=== PATIENT | female | born 1935 | race Caucasian/White ===

== ENCOUNTER 2017-12-24 09:23 | Emergency (ER) | payer OTHER ==
[~2017-12-24] VITALS: Ht 160 cm; Wt 88.5 kg
[~2017-12-24 09:23] MED LIST: ANAPROX275 MG PO; ARICEPT10 MG PO; ASA81 MG PO; AVALIDE 150-12.1 TA1 PO; CIPRO500 MG PO; CODE1TAB37 PO; GLUCOVANCE 2.5/1 TAB PO; NAMENDA10 MG PO; SYNTHROID50 MCG PO
== END 2017-12-24 13:44 | disposition home or self-care (01) ==
LOC: ER 09:23
DX: S01.82XA Laceration with foreign body of other part of head, initial encounter (principal); W01.118A Fall on same level from slipping, tripping and stumbling with subsequent striking against other sharp object, initial encounter; Y93.01 Activity, walking, marching and hiking; Y92.018 Other place in single-family (private) house as the place of occurrence of the external cause; Y99.8 Other external cause status

== ENCOUNTER → 2018-01-01 | Emergency (ER) | payer OTHER ==
[~2018-01-01] VITALS: Ht 160 cm; Wt 86.2 kg
== END | disposition home or self-care (01) ==
LOC: ER 10:50
DX: Z48.02 Encounter for removal of sutures (principal)

== ENCOUNTER 2019-04-12 09:53 | Inpatient (IN) | payer OTHER ==
[~2019-04-12] VITALS: Ht 157.5 cm; Wt 88.5 kg
[2019-04-12] MEDS ORDERED: GLUCOTROL XL5 MG (10:34)
== END 2019-04-24 13:20 | disposition expired ==
LOC: ER 09:53 → ICU-2 13:23 → ICU 13:23 → MEDJ 04-17 13:53
PROVIDERS: ADMIT Internal Medicine Cardiovascular Disease
PROC: B246ZZZ Ultrasonography of Right and Left Heart (ICD-10-PCS; principal; 2019-04-12)
PROC: 0T9B70Z Drainage of Bladder with Drainage Device, Via Natural or Artificial Opening (ICD-10-PCS; 2019-04-12)
PROC: 4A12X4Z Monitoring of Cardiac Electrical Activity, External Approach (ICD-10-PCS; 2019-04-17)
PROC: BW40ZZZ Ultrasonography of Abdomen (ICD-10-PCS; 2019-04-18)
PROC: 02HV33Z Insertion of Infusion Device into Superior Vena Cava, Percutaneous Approach (ICD-10-PCS; 2019-04-20)
PROC: 3E0F7GC Introduction of Other Therapeutic Substance into Respiratory Tract, Via Natural or Artificial Opening (ICD-10-PCS; 2019-04-23)
DX: I21.4 Non-ST elevation (NSTEMI) myocardial infarction (principal); K72.00 Acute and subacute hepatic failure without coma; N17.8 Other acute kidney failure; E87.2 Acidosis; N39.0 Urinary tract infection, site not specified; G93.49 Other encephalopathy; I48.2 Chronic atrial fibrillation; Z79.01 Long term (current) use of anticoagulants; E11.9 Type 2 diabetes mellitus without complications; Z79.4 Long term (current) use of insulin; R31.0 Gross hematuria; G30.0 Alzheimer's disease with early onset; F02.80 Dementia in other diseases classified elsewhere, unspecified severity, without behavioral disturbance, psychotic disturbance, mood disturbance, and anxiety; B96.1 Klebsiella pneumoniae [K. pneumoniae] as the cause of diseases classified elsewhere; I34.0 Nonrheumatic mitral (valve) insufficiency; Z66 Do not resuscitate; I10 Essential (primary) hypertension